=== PATIENT | female | born 1965 | race Caucasian/White ===

== ENCOUNTER → 2016-06-05 12:31 | Outpatient (CLI) | payer MEDICAID | END | disposition home or self-care (01) | LOC: D.RAD 06-04 08:30 | DX: R13.10 Dysphagia, unspecified (principal) ==

== ENCOUNTER 2016-08-02 08:23 | Emergency (ER) | payer MEDICAID | END 2016-08-02 09:25 | disposition home or self-care (01) | LOC: D.ER 08:23 | DX: M25.551 Pain in right hip (principal); K21.9 Gastro-esophageal reflux disease without esophagitis; I10 Essential (primary) hypertension ==

== ENCOUNTER → 2017-02-03 17:27 | Outpatient (CLI) | payer MEDICAID | END | disposition home or self-care (01) | LOC: D.MAMMO 15:45 | DX: Z12.31 Encounter for screening mammogram for malignant neoplasm of breast (principal) ==

== ENCOUNTER → 2018-03-08 15:53 | Outpatient (CLI) | payer MEDICAID | END | disposition home or self-care (01) | LOC: D.MRI 15:53 | DX: M43.16 Spondylolisthesis, lumbar region (principal); M54.31 Sciatica, right side ==

== ENCOUNTER 2019-05-26 18:47 | Emergency (ER) | payer MEDICAID ==
[~2019-05-26] VITALS: Ht 158.8 cm; Wt 94.5 kg
[2019-05-26 18:53] VITALS: Ht 158.8 cm; Wt 94.5 kg
[2019-05-26] MEDS ORDERED: ALBUTEROL SULF8.5 GM INH (18:55)
[2019-05-26] MEDS ORDERED: [UNRECOGNIZED DRUG - REMARK] (18:55)
[2019-05-26] MEDS ORDERED: DICLOFENAC SODI50 MG PO (19:28)
[2019-05-26 20:15] VITALS: BP 192/109
== END 2019-05-26 20:03 | disposition home or self-care (01) ==
LOC: D.ER 18:47
DX: S20.219A Contusion of unspecified front wall of thorax, initial encounter (principal); W01.0XXA Fall on same level from slipping, tripping and stumbling without subsequent striking against object, initial encounter; Y93.9 Activity, unspecified; Y92.9 Unspecified place or not applicable; J45.909 Unspecified asthma, uncomplicated

== ENCOUNTER → 2019-06-20 18:16 | Outpatient (CLI) | payer MEDICAID ==
[2019-05-26 18:53] VITALS: BMI 37.5
[~2019-06-20 18:16] MED LIST: ALBUTEROL SULF8.5 GM INH; DICLOFENAC SODI50 MG PO; [UNRECOGNIZED DRUG - REMARK]
== END | disposition home or self-care (01) ==
LOC: D.MAMMO 05-10 15:45
PROVIDERS: ATTEND Family Medicine
DX: Z12.31 Encounter for screening mammogram for malignant neoplasm of breast (principal)

== ENCOUNTER → 2020-08-06 08:02 | Outpatient (CLI) | payer BC ==
[2020-02-04 10:21] VITALS: BMI 37.1
[~2020-08-06 08:02] MED LIST changes: +OMEPRAZOLE40 MG PO; +STERAPRED 5MG 65 M1 PO; +UNKNOWN BP MED; +VOLTAREN75 MG PO; +ZANAFLEX4 MG PO
== END | disposition home or self-care (01) ==
LOC: D.US 08:00
PROVIDERS: ATTEND Family Medicine
DX: R10.11 Right upper quadrant pain (principal)

== ENCOUNTER → 2020-08-16 10:51 | Outpatient (CLI) | payer BC ==
[2020-02-04 10:21] VITALS: BMI 37.1
== END | disposition home or self-care (01) ==
LOC: D.NM 10:51
PROVIDERS: ATTEND Family Medicine
DX: R10.11 Right upper quadrant pain (principal)